=== PATIENT | female | born 1975 | race Caucasian/White ===

== ENCOUNTER 2019-11-19 13:56 | Emergency (ER) | payer OTHER, SELFPAY ==
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
[2019-11-19 14:05] VITALS: BP 159/88; PULSE 95; RESP 18; TEMP 37.2; O2SAT 98
== END 2019-11-19 14:47 | disposition home or self-care (01) ==
PROVIDERS: Emergency Provider Nurse Practitioner Family; PCP Internal Medicine
DX: G24.3 Spasmodic torticollis (principal); S13.9XXA Sprain of joints and ligaments of unspecified parts of neck, initial encounter; V49.40XA Driver injured in collision with unspecified motor vehicles in traffic accident, initial encounter; K21.9 Gastro-esophageal reflux disease without esophagitis; J45.909 Unspecified asthma, uncomplicated
CPT/HCPCS: 99213; G0463

== ENCOUNTER 2024-05-22 17:26 | Emergency (ER) | payer OTHER, SELFPAY ==
--- OUTSIDE RECORDS SUMMARY | 2024-05-22 17:30 | XMS_ITS ---
Care Plan - [facility] Created on: May 22, 2024 MIHIR ASHTON : 1975 Sex: Female Author Organization [facility] Address [address] [place] [address] Phone Care Team Providers Care Microfilm Processor Name Role Phone REN TURNER, CLEMENCIA Vaughan Unavailable [phone] DALTON ORDOÑEZ MD Unavailable [phone]
--- OUTSIDE RECORDS SUMMARY | 2024-05-22 17:30 | XMS_ITS | Clinical Summary ---
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 EXAM Problems Includes: Problems addressed during this encounter and other active Problems All Visits Onset Date Resolved Date Provider Condition S tatus Diverticulitis of Colon 06/12/2022 [facility] CHOWDHURY [facility] Active Last Documented On 3 2:29PM ; [facility] Hypertension Systemic 06/12/2022 [facility]OW[facility] Active Last Documented On 3 2:10PM ; [facility] Asthma 09/15/2015 [facility] CHOWDHURY [facility] Act elvira Last Documented On 6 1:05PM ; [facility] Plan of Treatment Pending Tests Order Diagnosis Results Due Ordering P rovider Ultrasound (OB) - ULTRASOUND Pelvic w/TVT (TransVag) Abdominal distension (gaseous) 06/15/23 [facility] Too LUCIANA [facility] Last Documented On 4 2:38PM ; [facility] Radiology @ other - *MAMMOGRAPHY SCREENING MAMMOGRAM Encntr screen mammogram for malignant neoplasm of breast 06/29/23 [facility] MCGRAWNP-BC Last Documented On 4 2:38PM ; [facility] In office procedures - *Clia Waived Labs *FOBT* Fecal Occult Blood Test Encounter for screening for malignant neoplasm of rectum 06/29/23 [facility] CHOWDHURY [facility] Last Documented On 4 2:01PM ; [facility] Assessments Includes: Assessments from this encounter No Assessments Recorded Medical Equipment - Implanted Devices Includes: Current Devices No Medical Equipment Recorded Medications Includes: Medications discussed during this encounter and other current Medications Current Medications (continue as prescribed) Ashwagandha 125 MG Oral Capsule 06/15/2023 Provider: Diagnosis: Last Documented On 06/15/2023 1:48PM By Shanti GARCIA ; [facility] Vitamin D3 25 MCG (1000 UT) Oral Tablet Chewable 0 06/15/2023 Provider: Diagnosis: Last Documented On 06/15/2023 1:48PM By Shanti GARCIA ; [facility] Losartan Potassium-HCTZ 50-1 2.5 MG Oral Tablet 05/28/2022 Provider: RODRIGUEZ SILVA NP Diagnosis: Last Documented On 06/12/2022 2:10PM By Mallory GARCIA ; [facility] Medications Administered Includes: Administered Medications from this encounter No Administered Medications Recorded Results Includes: Results discussed during this encounter No Results Recorded For Specified Dates History of Present Illness Includes: History of Present Illness from this encounter No History of Present Illness Recorded Social History No Social History Recorded - Smoking Status Unknown Medical History Includes: Medical History addressed during this encounter No Medical History Recorded Family History Includes: Family History addressed during this encounter No Family History Recorded Review of Systems Includes: Review of Systems from this encounter No Review of Systems Recorded Mental Status Includes: Mental Status from this encounter No Mental Status Recorded Functional Status Includes: Functional Status from this encounter No Functional Status Recorded Physical Exam Includes: Physical Exam from this encounter No Physical Exam Recorded Allergies Includes: Active Allergies Substance Type Reaction Onset Date Resolved Date Statu s Codeine Allergy 04/10/2009 Active Last Documented On 4 1:49PM ; [facility] Insurance Includes: Active Insurance Policies Plan Name Member ID Group # Subscriber Relationship Effect elvira Dates 1 - [facility] [id number] MIHIR ASHTON Self Clinical Notes Includes: Clinical Notes from this encounter No Clinical Notes Recorded
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
--- OUTSIDE RECORDS SUMMARY | 2024-05-22 17:30 | XMS_ITS | Clinical Summary ---
Author Organization [facility] Medical Office Building A Address [address] [place] [address] Care Team Providers Care Vice President Payment Name Role Phone Isamar Flores MD Unavailable [phone] Jennifer Mandel MD Unavailable [phone] Bradley Knutson DO Unavailable [phone] Vanessa Robledo WHEEL ASSEMBLER Primary Care Provider [phone] Lakshmi Bai Unavailable [phone] Sofia Sol NP Unavailable [phone] Allergies Active Allergy Reactions Criticality Noted Date Comments Celecoxib Other (See comments) Low 10/02/2022 Diffuse bruising Codeine Nausea & Vomiting Low Reaction: Gastrointestinal Intolerance, Lisinopril Cough Low 09/01/2020 Medications multivitamin capsule Take 1 capsule by mouth daily Active cholecalciferol (VITAMIN D-3) 5,000 unit capsule Take 1 capsule (5,000 Units total) by mouth daily Active turmeric root extract 500 mg capsule Take by mouth Active Advair Diskus 250-50 mcg/dose diskus inhalerIndications :Exercise-induced asthma,Seasonal allergic rhinitis, unspecified trigger INHALE 1 PUFF BY MOUTH TWICE DAILY. RINSE MOUTH WITH WATER AFTER USE. DO NOT SWALLOW 60 each 3 06/30/19 23 Active rizatriptan METAL WIRE COATING OPERATOR (Maxalt-METAL WIRE COATING OPERATOR) 10 mg disintegrating tabletIndications: Migraine with aura and without status migrainosus, not intractable Take 1 tablet (10 mg total) by mouth once as needed for migraine Take at onset of headache, if no improvement in 2 hours may take a second tablet, not to exceed 2 tablets in 24 hours 12 tablet 3 06/06/19 24 Active losartan-hydroCHLO ROthiazide (HYZAAR) 50-12.5 mg per tablet TAKE 1 TABLET BY MOUTH DAILY 90 tablet 3 09/05/19 24 025 Active Active Problems Problem Noted Date Diagnosed Date Neck pain 04/02/2024 Chronic right-sided low back pain with right-yan ed sciatica 04/02/2024 Numbness and tingling of right hand 04/02/2024 Pain and numbness of right upper extremity 04/02 Lightheadedness 06/06/2023 Assessment & Plan (06/08/2023 1:22 PM CDT): -improving -event monitor completed and did not show any concerning findings -patient thinks this is related to when she was having severe pain in her right knee -continue seeing ortho -follow up if this worsens Ear pain, left 03/20/2023 Assessment & Plan (03/20/2023 11:16 AM CHRONIC DISEASE MANAGER): -acute, 4 day onset -no complaints with right ear -associated symptoms left-sided sinus pressure and headache -went to urgent care for same complaints was given amoxicillin, started 1 day ago -will discontinue amoxicillin -levofloxacin prescribed to cover for ear/sinus infection Complex tear of medial meniscus of right knee Primary osteoarthritis of right knee 08/15/2022 Arthritis of right knee 03/20/2022 Assessment & Plan (05/29/2022 1:18 PM CDT): HPI: Condition is stable A&P: Continue seeing ortho for steroid injections and pain management. Radiculopathy, lumbosacral region 03/20/2022 Prediabetes 11/09/2021 Assessment & Plan (03/10/2024 7:56 AM CHRONIC DISEASE MANAGER): -chronic, stable -Discussed/ordered labs -recommend healthy carb diet with increased protein intake Assessment & Plan (06/06/2023 8:05 AM CDT): -chronic, stable -Discussed/ordered labs -recommend healthy carb diet with increased protein intake Assessment & Plan (01/08/2023 3:29 PM CHRONIC DISEASE MANAGER): -chronic, unknown, no data to review at this time to make an evaluation -Discussed/ordered labs -recommend healthy carb diet with increased protein intake -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 to public welfare worker Assessment & Plan (05/29/2022 7:21 AM CDT): HPI: Condition is stable A&P: Discussed/ordered labs, encouraged healthy, low carbohydrate lifestyle and at least 150min/week of exercise. Assessment & Plan (11/09/2021 11:46 AM CDT): HPI: Condition is new A&P: Discussed/ordered labs, encouraged healthy, low carbohydrate lifestyle and at least 150min/week of exercise, Pt just received optavia and is starting on that. We will not give medication to bring that down. She has stopped soda for the last 3 days. She switched to sweet tea. Pt needs to switch to water. Situational mixed anxiety and depressive disorde r 11/09/2021 Assessment & Plan (03/10/2024 7:57 AM CHRONIC DISEASE MANAGER): -chronic, stable -Patient is doing well and is not taking medication for this. -recommend healthy diet and exercise Patient reiterated no suicidal thoughts at this time; take medication as directed; contact 911 and go to the ER if becomes suicidal; discussed side effects of medication with patient; encouraged healthy diet and exericise; encouraged patient to see a counselor Assessment & Plan (01/08/2023 3:30 PM CHRONIC DISEASE MANAGER): Patient reiterated no suicidal thoughts at this time; take medication as directed; contact 911 and go to the ER if becomes suicidal; discussed side effects of medication with patient; encouraged healthy diet and exericise; encouraged patient to see a counselor -chronic, stable -Patient is doing well and is not taking medication for this. -recommend healthy diet and exercise Assessment & Plan (05/29/2022 1:18 PM CDT): Patient reiterated no suicidal thoughts at this time; take medication as directed; contact 911 and go to the ER if becomes suicidal; discussed side effects of medication with patient; encouraged healthy diet and exericise; encouraged patient to see a counselor HPI: Condition is stable Patient is doing well and is not taking medication for this. A&P: Discussed/ordered labs, encouraged healthy, low carbohydrate lifestyle and at least 150min/week of exercise. Assessment & Plan (11/09/2021 12:31 PM CDT): Patient reiterated no suicidal thoughts at this time; take medication as directed; contact 911 and go to the ER if becomes suicidal; discussed side effects of medication with patient; encouraged healthy diet and exericise; encouraged patient to see a counselor HPI: Condition is not at/near goal A&P: Discussed/ordered labs, encouraged healthy, low carbohydrate lifestyle and at least 150min/week of exercise, Start on escitalopram 10mg daily be consistent with timing Buspirone 10mg Twice daily while the escitalopram is kicking in. If you need a gummy at bedtime, may use it sparingly. Must see counselor. Schedule a date with your friends, do this monthly. Migraine with aura and witho ut status migrainosus, not intractable 01/11/2021 Assessment & Plan (03/10/2024 7:56 AM CHRONIC DISEASE MANAGER): -chronic, stable -Discussed/ordered labs -continue on rizatriptan 10 mg as needed for headache Discussed avoiding all caffeine: no soda, tea, coffee, chocolate; no wine; no sharp cheeses; no processed meats like hot dogs or bologna; no MSG as found in cambodian food; no more than 1/2 banana a day; no artificial sweeteners; fresh bread (less than 24 hours old) Avoid using excedrin, tylenol, ibuprofen or aleve more than twice a week or else you can cause medication overuse/rebound headaches. You may be causing the headaches with the medications you are taking to get rid of them. Be sure to push lots of water as dehydration is a big cause of headaches. Assessment & Plan (06/06/2023 8:05 AM CDT): -chronic, stable -Discussed/ordered labs -continue on rizatriptan 10 mg as needed for headache Discussed avoiding all caffeine: no soda, tea, coffee, chocolate; no wine; no sharp cheeses; no processed meats like hot dogs or bologna; no MSG as found in cambodian food; no more than 1/2 banana a day; no artificial sweeteners; fresh bread (less than 24 hours old) Avoid using excedrin, tylenol, ibuprofen or aleve more than twice a week or else you can cause medication overuse/rebound headaches. You may be causing the headaches with the medications you are taking to get rid of them. Be sure to push lots of water as dehydration is a big cause of headaches. Assessment & Plan (03/20/2023 11:15 AM CHRONIC DISEASE MANAGER): -chronic, stable -currently taking rizatriptan -reporting left-sided headache in office today, likely due to sinus/ear infection -patient encouraged to take migraine medication as needed -continue current therapy Assessment & Plan (01/08/2023 3:29 PM CHRONIC DISEASE MANAGER): -chronic, stable -Discussed/ordered labs -continue on rizatriptan 10 mg as needed for headache Discussed avoiding all caffeine: no soda, tea, coffee, chocolate; no wine; no sharp cheeses; no processed meats like hot dogs or bologna; no MSG as found in cambodian food; no more than 1/2 banana a day; no artificial sweeteners; fresh bread (less than 24 hours old) Avoid using excedrin, tylenol, ibuprofen or aleve more than twice a week or else you can cause medication overuse/rebound headaches. You may be causing the headaches with the medications you are taking to get rid of them. Be sure to push lots of water as dehydration is a big cause of headaches. Assessment & Plan (05/29/2022 7:21 AM CDT): HPI: Condition is stable A&P: Discussed/ordered labs, encouraged healthy, low carbohydrate lifestyle and at least 150min/week of exercise, continue on rizatriptan 10 mg as needed for headache. Discussed avoiding all caffeine: no soda, tea, coffee, chocolate; no wine; no sharp cheeses; no processed meats like hot dogs or bologna; no MSG as found in cambodian food; no more than 1/2 banana a day; no artificial sweeteners; fresh bread (less than 24 hours old) Avoid using excedrin, tylenol, ibuprofen or aleve more than twice a week or else you can cause medication overuse/rebound headaches. You may be causing the headaches with the medications you are taking to get rid of them. Be sure to push lots of water as dehydration is a big cause of headaches. Assessment & Plan (09/19/2021 6:34 AM CDT): HPI: Condition is stable A&P: Discussed/ordered labs, encouraged healthy, low carbohydrate lifestyle and at least 150min/week of exercise, Discussed avoiding all caffeine: no soda, tea, coffee, chocolate; no wine; no sharp cheeses; no processed meats like hot dogs or bologna; no MSG as found in cambodian food; no more than 1/2 banana a day; no artificial sweeteners; fresh bread (less than 24 hours old) Avoid using excedrin, tylenol, ibuprofen or aleve more than twice a week or else you can cause medication overuse/rebound headaches. You may be causing the headaches with the medications you are taking to get rid of them. Be sure to push lots of water as dehydration is a big cause of headaches. Continue using rizatriptan 10mg as needed Assessment & Plan (01/11/2021 12:53 PM CHRONIC DISEASE MANAGER): Toradol 60mg given in office-monitored x 30 min; pain 6/10 Ibuprofen 800mg as needed; discussed proper use of a triptan-taking within 30min of onset of headache, may repeat in 2 hours if headache not improved, not to exceed 2 in 24 hours; discussed keeping headache diary Discussed avoiding all caffeine: no soda, tea, coffee, chocolate; no wine; no sharp cheeses; no processed meats like hot dogs or bologna; no MSG as found in cambodian food; no more than 1/2 banana a day; no artificial sweeteners; fresh bread (less than 24 hours old) Avoid using tylenol, ibuprofen or aleve more than twice a week or else you can cause medication overuse/rebound headaches. You may be causing the headaches with the medications you are taking to get rid of them. Be sure to push lots of water as dehydration is a big cause of headaches. Hypertension, essential 06/29/2020 Assessment & Plan (03/10/2024 7:56 AM CHRONIC DISEASE MANAGER): -chronic, stable -Discussed/ordered labs -continue on losartan-hydrochlorothiazide 50-12.5 mg daily -recommend healthy, low salt diet Assessment & Plan (06/06/2023 8:05 AM CDT): -chronic, stable -Discussed/ordered labs -continue on losartan-hydrochlorothiazide 50-12.5 mg daily -recommend healthy, low salt diet Assessment & Plan (01/08/2023 2:46 PM CHRONIC DISEASE MANAGER): -chronic, stable -Discussed/ordered labs -continue on losartan-hydrochlorothiazide 50-12.5 mg daily -recommend healthy, low salt diet Assessment & Plan (05/29/2022 7:22 AM CDT): HPI: Condition is stable A&P: Discussed/ordered labs, encouraged healthy, low carbohydrate lifestyle and at least 150min/week of exercise, continue on losartan-hydrochlorothiazide 50-12.5 mg daily Assessment & Plan (11/09/2021 12:14 PM CDT): HPI: Condition is stable A&P: Discussed/ordered labs, encouraged healthy, low carbohydrate lifestyle and at least 150min/week of exercise, continue on losartan/hydrochlorothiazide 50/12.5 mg daily Assessment & Plan (09/19/2021 6:36 AM CDT): HPI: Condition is stable A&P: Discussed/ordered labs, encouraged healthy, low carbohydrate lifestyle and at least 150min/week of exercise, continue on losartan/hydrochlorothiazide 50/12.5 mg daily Assessment & Plan (08/04/2020 8:55 AM CDT): HPI: Condition is improving A&P: Discussed/ordered labs, encouraged healthy, low carbohydrate lifestyle and at least 150min/week of exercise, decrease lisinopril/HCTZ 10/12.5 mg 1/2 tablet daily (she doesn't want to come off of the HCTZ as she is having less swelling) With your high blood pressure, you may not take anything with the letter D or DM, dextromethoraphan or sudafed. This includes meds such as nyquil, dayquil, Claritin D, Mucinex D, Robitussin DM. You may take coricidin HBP which is safe for those that have high blood pressure. You may also take plain clairitin, zyrtec, vickie, Robitussin or Mucinex. Assessment & Plan (06/29/2020 10:32 AM CDT): HPI: Condition is new A&P: Discussed/ordered labs, encouraged healthy, low carbohydrate lifestyle and at least 150min/week of exercise, clonidine 0.2mg given in office at 1010am. EKG done in office today my interpretation: Normal sinus rhythm rate 73 No axis deviation No bundle-branch block No acute ST changes No comparison available With your high blood pressure, you may not take anything with the letter D or DM, dextromethoraphan or sudafed We will start on lisinopril/hctz 20/12.5mg daily Family history of early CAD 06/29/2020 Overview (06/29/2020): Paternal family history with father, aunt, grandfather Maternal history of TIAs and ALS Assessment & Plan (05/29/2022 1:20 PM CDT): -Patient's insurance would not cover chemical stress test. -Cardiology ordered a treadmill stress test, but patient states she was not made aware of this. -Advised patient to call and schedule treadmill stress test. -Follow up with Cardiology. Assessment & Plan (11/09/2021 12:10 PM CDT): EKG done in office today NSR rate 85 no axis deviation no bbb no acute st changes We will refer to cardiology for stress test Assessment & Plan (06/29/2020 10:32 AM CDT): Labs ordered today Class 2 severe obesity with serious comorbidity and body mass index (BMI) of 36.0 to 36.9 in adult 06/29/2020 Assessment & Plan (03/10/2024 2:59 PM CHRONIC DISEASE MANAGER): -chronic not at/near goal goal BMI <30 Healthy, high-protein, lower carbohydrate, lower fat lifestyle and exercise for 150min/week recommended Recommend tracking everything you put in your mouth on an karmen like Donay -patient's insurance does not cover weight loss injectables -start on phentermine 15 mg daily. Potential side effects discussed with pt. Advised pt that we typically keep pts on this medication for 3 months at a time -Follow up in 1 month or sooner as needed Hand Measurements: A fist or cupped hand = 1 cup 1 cup = 1 -2 servings of fruit juice 1 oz. of cold cereal 2 oz. of cooked cereal, rice or pasta 8 oz. of milk or yogurt A thumb = 1 oz. of cheese Consuming low-fat cheese helps you meet the required servings from the milk, yogurt and cheese group. 1 oz. of low-fat cheese counts as 8 oz. of milk or yogurt. Handful = 1-2 oz. of snack food Thumb tip = 1 teaspoon Keep high-fat foods, such as peanut butter and mayonnaise, at a minimum. One teaspoon is equal to the end of your thumb, from the knuckle up. Three teaspoons equals 1 tablespoon. Palm = 3 oz. of meat Choose lean poultry, fish, shellfish and beef. One palm size portion equals 3 oz. for an adult and 1 -2 oz. for a child under 5. 1 tennis ball or a fist= 1/2 cup of fruit and vegetables Healthy diets include a variety of colorful fruits and vegetables every day. The secret to serving size is in your hand. Snacking can add up. Because hand sizes vary, compare your fist size to an actual measuring cup. Assessment & Plan (06/08/2023 1:22 PM CDT): -chronic not at/near goal goal BMI <30 Healthy, high-protein, lower carbohydrate, lower fat lifestyle and exercise for 150min/week recommended Recommend tracking everything you put in your mouth on an karmen like Donay -patient's insurance does not cover weight loss medications. Hand Measurements: A fist or cupped hand = 1 cup 1 cup = 1 -2 servings of fruit juice 1 oz. of cold cereal 2 oz. of cooked cereal, rice or pasta 8 oz. of milk or yogurt A thumb = 1 oz. of cheese Consuming low-fat cheese helps you meet the required servings from the milk, yogurt and cheese group. 1 oz. of low-fat cheese counts as 8 oz. of milk or yogurt. Handful = 1-2 oz. of snack food Thumb tip = 1 teaspoon Keep high-fat foods, such as peanut butter and mayonnaise, at a minimum. One teaspoon is equal to the end of your thumb, from the knuckle up. Three teaspoons equals 1 tablespoon. Palm = 3 oz. of meat Choose lean poultry, fish, shellfish and beef. One palm size portion equals 3 oz. for an adult and 1 -2 oz. for a child under 5. 1 tennis ball or a fist= 1/2 cup of fruit and vegetables Healthy diets include a variety of colorful fruits and vegetables every day. The secret to serving size is in your hand. Snacking can add up. Because hand sizes vary, compare your fist size to an actual measuring cup. Assessment & Plan (03/20/2023 9:06 AM CHRONIC DISEASE MANAGER): Wt Readings from Last 3 Encounters: 03/20/23 92.5 kg (204 lb) 03/19/23 94.3 kg (208 lb) 02/19/23 94.3 kg (208 lb) Body mass index is 35.02 kg/m . -chronic, not at/near goal -Discussed recommendations for exercise at least 30 minutes moderate to vigorous exercise most days of the week. (minimum 150 minutes weekly) -Discussed importance of well-balanced diet. Assessment & Plan (01/08/2023 2:43 PM CHRONIC DISEASE MANAGER): HPI: Condition is not at/near goal goal BMI <30 A&P: Healthy, high-protein, lower carbohydrate, lower fat lifestyle and exercise for 150min/week recommended Recommend tracking everything you put in your mouth on an karmen like Donay Hand Measurements: A fist or cupped hand = 1 cup 1 cup = 1 -2 servings of fruit juice 1 oz. of cold cereal 2 oz. of cooked cereal, rice or pasta 8 oz. of milk or yogurt A thumb = 1 oz. of cheese Consuming low-fat cheese helps you meet the required servings from the milk, yogurt and cheese group. 1 oz. of low-fat cheese counts as 8 oz. of milk or yogurt. Handful = 1-2 oz. of snack food Thumb tip = 1 teaspoon Keep high-fat foods, such as peanut butter and mayonnaise, at a minimum. One teaspoon is equal to the end of your thumb, from the knuckle up. Three teaspoons equals 1 tablespoon. Palm = 3 oz. of meat Choose lean poultry, fish, shellfish and beef. One palm size portion equals 3 oz. for an adult and 1 -2 oz. for a child under 5. 1 tennis ball or a fist= 1/2 cup of fruit and vegetables Healthy diets include a variety of colorful fruits and vegetables every day. The secret to serving size is in your hand. Snacking can add up. Because hand sizes vary, compare your fist size to an actual measuring cup. Assessment & Plan (05/29/2022 1:19 PM CDT): HPI: Condition is not at/near goal goal BMI <30 A&P: Healthy, high-protein, lower carbohydrate, lower fat lifestyle and exercise for 150min/week recommended. Advised patient she needs to stop drinking soda and needs to drink at least 64 oz of plain water daily. Recommend tracking everything you put in your mouth on an karmen like [employer] Hand Measurements: A fist or cupped hand = 1 cup 1 cup = 1 -2 servings of fruit juice 1 oz. of cold cereal 2 oz. of cooked cereal, rice or pasta 8 oz. of milk or yogurt A thumb = 1 oz. of cheese Consuming low-fat cheese helps you meet the required servings from the milk, yogurt and cheese group. 1 oz. of low-fat cheese counts as 8 oz. of milk or yogurt. Handful = 1-2 oz. of snack food Thumb tip = 1 teaspoon Keep high-fat foods, such as peanut butter and mayonnaise, at a minimum. One teaspoon is equal to the end of your thumb, from the knuckle up. Three teaspoons equals 1 tablespoon. Palm = 3 oz. of meat Choose lean poultry, fish, shellfish and beef. One palm size portion equals 3 oz. for an adult and 1 -2 oz. for a child under 5. 1 tennis ball or a fist= 1/2 cup of fruit and vegetables Healthy diets include a variety of colorful fruits and vegetables every day. The secret to serving size is in your hand. Snacking can add up. Because hand sizes vary, compare your fist size to an actual measuring cup. Assessment & Plan (11/09/2021 12:33 PM CDT): HPI: Condition is stable goal BMI <30 A&P: Healthy, high-protein, lower carbohydrate, lower fat lifestyle and exercise for 150min/week recommended Recommend tracking everything you put in your mouth on an karmen like Donay Lower carb substitutions: Ald[employer] carries a zero net carb bread If you are looking for whole potatoes, like to use in soup or new potato shape/flavor, radishes are a great replacement If you are looking for mashed potatoes, riced cauliflower in the frozen bag section are a great replacement For pasta, try using zucchini noodles, lay them out on a cookie sheet and pat dry with a tea towel to try to remove as much moisture as possible. Heat your pasta sauce on the stove and put the noodles in for 30-45 seconds. If you leave them in much longer they will become mushy [place] and/or coconut flour instead of regular flour For pizza dough, try fathead pizza dough recipe online. To get a crispy crust, bake on one side for 8-12 min, then flip over and bake on the other side for 8-12 min, then put toppings on and bake until the cheese on top of pizza melts chaffburak recipe online For ice cream, try the brand Enlightened To replace coffee creamer and make it low carb, use heavy creamer with sugar free Torani sweetener For chips, try Whisps or pork rinds For yogurt, try Two Good maltese yogurt Use Pinterest for recipe ideas. Type in low carb... Hand Measurements: A fist or cupped hand = 1 cup 1 cup = 1 -2 servings of fruit juice 1 oz. of cold cereal 2 oz. of cooked cereal, rice or pasta 8 oz. of milk or yogurt A thumb = 1 oz. of cheese Consuming low-fat cheese helps you meet the required servings from the milk, yogurt and cheese group. 1 oz. of low-fat cheese counts as 8 oz. of milk or yogurt. Handful = 1-2 oz. of snack food Thumb tip = 1 teaspoon Keep high-fat foods, such as peanut butter and mayonnaise, at a minimum. One teaspoon is equal to the end of your thumb, from the knuckle up. Three teaspoons equals 1 tablespoon. Palm = 3 oz. of meat Choose lean poultry, fish, shellfish and beef. One palm size portion equals 3 oz. for an adult and 1 -2 oz. for a child under 5. 1 tennis ball or a fist= 1/2 cup of fruit and vegetables Healthy diets include a variety of colorful fruits and vegetables every day. The secret to serving size is in your hand. Snacking can add up. Remember, 1 handful equals 1 oz. of nuts and small candies. For chips and pretzels, 2 handfuls equals 1 oz. Because hand sizes vary, compare your fist size to an actual measuring cup. Assessment & Plan (09/19/2021 6:36 AM CDT): HPI: Condition is stable goal BMI <30 A&P: Healthy, high-protein, lower carbohydrate, lower fat lifestyle and exercise for 150min/week recommended Recommend tracking everything you put in your mouth on an karmen like Donay Lower carb substitutions: Aldi carries a zero net carb bread If you are looking for whole potatoes, like to use in soup or new potato shape/flavor, radishes are a great replacement If you are looking for mashed potatoes, riced cauliflower in the frozen bag section are a great replacement For pasta, try using zucchini noodles, lay them out on a cookie sheet and pat dry with a tea towel to try to remove as much moisture as possible. Heat your pasta sauce on the stove and put the noodles in for 30-45 seconds. If you leave them in much longer they will become mushy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 Answer Date Recorded Q1: How often do you have a drink containing alc ohol? Monthly or less 03/10/2024 Q2: How many drinks containi ng alcohol do you have on a typical day when you are drinking? 1 or 2 03/10/2024 Q3: How often do you have si x or more drinks on one occasion? Never 03/10/2024 PHQ-2 Answer Date Recorded PHQ-2 Total Score (If total score is 3 or more points, staff should administer the PHQ-9) 0 03/10/2024 Personal Safety Answer Date Recorded Have you ever been in or are you currently in a harmful physical or emotional relationship or is someone making you feel afraid or unsafe? 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 Gender Identity Not on file Sexual Orientation Not on file Obstetrics History Para Term AB IAB SAB Ectopic Multiple Livin g Live Births 1 1 1 Date Outcome GA Total Labor Labor/2nd/3rd Weight Sex Type Anes PTL Kayley A1 A5 Name Clin Term Last Filed Vital Signs Vital Sign Reading Time Taken Comments Blood Pressure 108/70 04/02/2024 1:18 PM CHRONIC DISEASE MANAGER Pulse 99 04/02/2024 1:18 PM CHRONIC DISEASE MANAGER Temperature 36.4 C (97.5 F) 03/10/2024 11:12 AM CHRONIC DISEASE MANAGER Respiratory Rate 20 03/10/2024 11:12 AM CHRONIC DISEASE MANAGER Oxygen Saturation 95% 04/02/2024 1:18 PM CHRONIC DISEASE MANAGER Inhaled Oxygen Concentration - - Weight 93.4 kg (206 lb) 04/02/2024 1:18 PM CHRONIC DISEASE MANAGER Height 157.5 cm (5' 2 ) 04/02/2024 1:18 PM CHRONIC DISEASE MANAGER Body Mass Index 37.68 04/02/2024 1:18 PM CHRONIC DISEASE MANAGER Plan of Treatment Health Maintenance Due Date Last Done Comments Colon Cancer Screening-Colonoscopy 1975 Hepatitis C Screening 1975 Hepatitis B Screening 08/17/1993 Cervical Cancer Screening 05/30/2016 05/31/2015 Covid-19 Vaccine ( - 2023-2 5 season) 2023 05/11/2020, 04/16/2020 Regular Well Visit/Exam 18-64 06/05/2024 06/06/2023 Breast Cancer Screening-Mammogram 08/07/2024 08/08/2023, 05/25/2021, 10/04/2015 Influenza Vaccine (Season Ended) 2024 01/12/20 21 Depression Screening 03/10/2025 03/10/2024, 06/06/2023, 03/20/2023, Additional history exists DTaP/Tdap/Td Vaccine (3 - Td or Tdap) 09/20/2031 09/19/2021, 04/27/2011, 09/14/2001 Pneumococcal vaccine <65 Completed 09/19/2021 Procedures Procedure Name Priority Date/Time Associated Diagnosis Comments EMG/NCV Routine 05/21/2024 12:47 PM CDT Pain and numbness of right upper extremity THYROID FUNCTION CASCADE Routine 02/26/2024 8:57 AM CHRONIC DISEASE MANAGER Family history of thyroid disease HEMOGLOBIN A1C Routine 02/26/2024 8:57 AM CHRONIC DISEASE MANAGER Pre-diabetes SCREENING MAMMOGRAM BILATERAL W JUAN Schedule Routine, Read Routine (OP Routine) 08/08/2023 1:09 PM CDT Encounter for screening mammogram for malignant neoplasm of breast PAP AND HIGH RISK HPV, REFLEX TO GENOTYPING Routine 05/31/2015 from Last 3 Months or Most Recently Relevant to Health Maintenance Results * EMG/NCV - (05/21/2024 12:47 PM CDT) Anatomical Region Laterality Modality EMG, EMG Impressions 05/21/2024 12:47 PM CDT History: This is a 48 years old female patient being evaluated for tingling and numbness, as well as pain on right side of her body. Nerve conduction studies: Right median and right ulnar motor nerve conduction studies showed normal DMLs, normal CMAP amplitudes, normal motor nerve conduction velocities and normal F wave latencies. Right radial antidromic sensory nerve conduction study showed normal SNAP peak latency, low amplitude and normal sensory nerve conduction velocity. Right median orthodromic sensory nerve conduction study showed normal SNAP peak latency, normal amplitude and normal sensory nerve conduction velocity. Right ulnar orthodromic sensory nerve conduction study showed normal SNAP peak latency, borderline low amplitude and normal sensory nerve conduction velocity. Right median and right radial SNAP peak latency comparison study using ring electrodes showed SNAP peak latency ms for right radial nerve and ms for right median nerve. EMG studies: The concentric needle electrode examination was performed on right FDI, APB, flexor carpi radialis, biceps and deltoid. There was no evidence of acute or chronic denervation or reinnervation. The interference pattern is full in all muscle tested. Impression: This is an abnormal study. There was electrophysiologic evidence suggestive of: 1. 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 2. Low amplitude of right radial sensory nerve. The finding may be secondary to technical difficulty. The needle EMG study of right upper extremity did not show any ongoing denervation. Torres Foster MD NEUROLOGY ORDERABLES Fi nal Result * Thyroid Function [place] (02/26/2024 8:57 AM CHRONIC DISEASE MANAGER) TSH 1.37 0.30 - 4.20 mcIUnit/mL Blood 02/26/2024 8:5 7 AM CHRONIC DISEASE MANAGER 02/26/2024 2:42 PM CHRONIC DISEASE MANAGER Sanjay Suarez DO LAB BLOOD ORDERABLES Final Result Performing Organization Address [facility] Co de Phone Number RAQUELAME [address] [address] [address] * Hemoglobin A1c (02/26/2024 8:57 AM CHRONIC DISEASE MANAGER) Hgb A1C 5.5 4.0 - 5.6 % Estimated Average Glucose 111 mg/dL MARIANO BROWN Comment: The ADA recommends reporting an estimated Average Glucose (eAG) with all Hemoglobin A1c results using the equation derived from a study of 507 normal and diabetic adults. Minority populations were underrepresented and children were not included. (Diabetes Care 31:5005-1899, 2008). The eAG is not equivalent to a fasting glucose. Blood 02/26/2024 8:57 AM CHRONIC DISEASE MANAGER 02/26/2024 2:42 PM CHRONIC DISEASE MANAGER Carolinebárbara Júnior Suarez DO LAB BLOOD ORDERABLES Final Result Performing Organization Address [facility] Co de Phone Number MARIANO BROWN [address] [address] [address] * Screening Mammogram Bilateral W Juan (08/08/2023 1:09 PM CDT) Anatomical Region Laterality Modality Breast Bilateral Mammography 08/08/2023 1:12 PM CDT Impressions 08/08/2023 1:12 PM CDT There is no mammographic evidence of malignancy. A 1 year screening mammogram is recommended. BI-RADS: 1 - Negative. The patient has been or will be contacted. The patient will be entered into a reminder system with a target due date of 1 year for her next mammogram. Electronically signed by: Kevin Tierney M.D. Narrative 08/08/2023 1:12 PM CDT EXAMINATION: SCREENING MAMMOGRAM BILATERAL W JUAN ORDERING HEALTHCARE PROVIDER: CLEMENCIA HUNT HISTORY: Routine screening mammography. COMPARISON: 05/25/2021, 10/15/2015, 10/04/2015 TECHNIQUE: CC and MLO views of the bilateral breasts were obtained with digital technique using breast tomosynthesis with C view. Computer aided detection was utilized. FINDINGS: DENSITY: The tissue of the bilateral breasts is heterogeneously dense, which may obscure small masses. BREASTS: There are no suspicious masses, suspicious calcifications, or other suspicious findings in either breast. There has been no suspicious interval change. Clemencia Hunt MD IMG MAMMO PROCEDURES Final Re sult * Pap and High Risk HPV, reflex to Genotyping (05/31/2015) Thin prep 05/31/2015 Historical Provider LAB CYTOLOGY ORDERABLES F inal Result from Last 3 Months or Most Recently Relevant to Health Maintenance Insurance [facility] H[facility]/PPO Address: [facility] [id number] [place] [id number] [place] [id number] [facility] H[facility]/PPO Address: [address] [address] [facility] [place] [address] Advance Directives For more information, please contact: [phone] * Full Code (Latest Code Status on File) Date Activated Date Inactivated Comments 09/30/2019 1:03 PM 10/02/2019 4:35 PM Care Teams Vice President Payment Relationship Specialty Start Date End Date Vanessa Robledo NP 2 [facility] [place] [address] PCP - General Family Medicine 05/29/22 Isamar Flores MD [address] [place] [address] Referring Physician Dermatology 06/29/20 Jennifer Mandel MD [address] [place] [address] Consulting Physician Gastroenterology 06/29/20 Bradley Knutson DO 2 [facility] [place] [address] Referring Physician Otolaryngology 06/29/20 Lakshmi Bai PA [address] [place] [id number] Orthopedic Surgery 10/02/22 Sofia Sol NP [address] [place] [id number] Nurse Practitioner Obstetrics and Gynecology 06/06/23
--- OUTSIDE RECORDS SUMMARY | 2024-05-22 17:30 | XMS_ITS | Encounter Summary ---
Author Organization [facility] Address [address] [place] [address] Care Team Providers Care Slip Cover Cutter Name Role Phone Iasmar Flores MD Unavailable [phone] Jennifer Mandel MD Unavailable [phone] Bradley Knutson DO Unavailable [phone] Vanessa Robledo NP Primary Care Provider + [phone] Lakshmi Bai Unavailable [phone] Sofia Sol NP Unavailable [phone] Reason for Referral * Neurology (Routine) - Closed Specialty Diagnoses / Procedures Referred By Jonathan alexander Referred To Contact Diagnoses Pain and numbness of right upper extremity Procedures EMG/NCV - Torres Foster MD [address] [place] [address] [address] [place] [address] Phone: tel: fax: [address] [phone] Referral ID Status Reason Start Date Expiration Date Visits Re quested Visits Authorized [id number] Closed 04/02/2024 05/02/2025 1 1 Reason for Visit * Neurology (Routine) - Closed Specialty Diagnoses / Procedures Referred By Jonathan alexander Referred To Contact Diagnoses Pain and numbness of right upper extremity Procedures EMG/NCV - Torres Foster MD [address] [facility] [address] [place] [address] Phone: tel: fax: [address] [phone] Referral ID Status Reason Start Date Expiration Date Visits Re quested Visits Authorized [id number] Closed 04/02/2024 05/02/2025 1 1 Encounter Details Date Type Department Care Team (Latest Contact Info) Description 05/21/2024 11:42 AM CDT - 05/21/2024 11:59 PM CDT Hospital Encounter [facility] Neurological Disorders Testing [address] [place] [address] Pain and numbness of right upper extremity Discharge Disposition: Discharge to home or self care Social History Tobacco Use Types Packs/Day Years Used Date Smoking Tobacco: Never Smokeless Tobacco: Never Alcohol Use Standard Drinks/Week Comments No 0 [...] on file 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 RINSE MOUTH WITH WATER AFTER USE. DO NOT SWALLOW 60 each 3 06/29/2022 cholecalciferol (VITAMIN D-3) 5,000 unit capsule Take 1 capsule (5,000 Units total) by mouth daily losartan-hydroCHLOR Othiazide (HYZAAR) 50-12.5 mg per tablet TAKE 1 TABLET BY MOUTH DAILY 90 tablet 3 09/05/2023 09/05/19 25 multivitamin capsule Take 1 capsule by mouth daily rizatriptan ROLL TENDER (Maxalt-ROLL TENDER) 10 mg disintegrating tabletIndications:M igraine with aura and without status migrainosus, not intractable Take 1 tablet (10 mg total) by mouth once as needed for migraine Take at onset of headache, if no improvement in 2 hours may take a second tablet, not to exceed 2 tablets in 24 hours 12 tablet 3 06/06/2023 turmeric root extract 500 mg capsule Take by mouth documented as of this encounter Discharge Disposition Disposition Code Departure Means Destination Discharge to home or self care documented in this encounter Plan of Treatment Not on file documented as of this encounter Procedures Procedure Name Priority Date/Time Associated Diagnosis Comments EMG/NCV Routine 05/21/2024 12:47 PM CDT Pain and numbness of right upper extremity documented in this encounter Results * EMG/NCV - (05/21/2024 12:47 PM [...] extremity did not show any ongoing denervation. us Torres Foster MD NEUROLOGY ORDERABLES Fi nal Result documented in this encounter Visit Diagnoses Diagnosis Pain and numbness of right upper extremity documented in this encounter Care Teams Slip Cover Cutter Relationship Specialty Start Date End Date Vanessa Robledo NP [address] [facility] [address] [place] [address] PCP - General Family Medicine 05/29/22 Isamar Flores MD [address] [place] [address] Referring Physician Dermatology 06/29/20 Jennifer Mandel MD [address] [place] [address] Consulting Physician Gastroenterology 06/29/20 Bradley Knutson DO 2 [facility] [address] [place] [address] Referring Physician Otolaryngology 06/29/20 Lakshmi Bai PA [address] [place] [address] [address] [place] [address] Orthopedic Surgery 10/02/22 Sofia Sol NP [address] [place] [address] Nurse Practitioner Obstetrics and Gynecology 06/06/23 documented as of this encounter
--- OUTSIDE RECORDS SUMMARY | 2024-05-22 17:30 | XMS_ITS | Referral Summary ---
Author Organization [facility] A Address [address] [place] [address] Care Team Providers Care Seaport Planning Manager Name Role Phone Isamar Flores MD Unavailable [phone] Jennifer Mandel MD Unavailable [phone] Bradley Knutson DO Unavailable [phone] Vanessa Robledo SHEAR OPERATOR AUTOMATIC Primary Care Provider [phone] Lakshmi Bai Unavailable [phone] Sofia Sol NP Unavailable [phone] Encounters Date Type Department Care Team Description 05/22/2024 Documentation [facility] [address] [facility] [address] [place] [phone] Torres Foster MD 05/21/2024 11:42 AM CDT - 05/21/2024 11:59 PM CDT Hospital Encounter [facility] Neurological Disorders Testing [address] [place] [address] Pain and numbness of right upper extremity Discharge Disposition: Discharge to home or self care 04/29/2024 Telephone [facility] [address] [place] [address] [address] [place] [address] Kimberly Archibald 04/02/2024 1:30 PM ENROBER Office Visit [facility] [address] [facility] [address] [place] [address] Torres Foster MD Neck pain (Primary Dx); Lower extremity numbness; Pain and numbness of right upper extremity; Chronic right-sided low back pain with right-sided sciatica 03/12/2024 Orders Only [facility] at [address] [place] [address] Vanessa Robledo NP Screening for colon cancer (Primary Dx) 03/10/2024 Telephone [facility] at [address] [place] [address] Vanessa Robledo NP 03/10/2024 11:30 AM ENROBER Office Visit [facility] at [address] [place] [address] Vanessa Robledo NP Hypertension, essential (Primary Dx); [...] 36.9 in adult, unspecified obesity type (HCC) 02/26/2024 8:57 AM ENROBER - 02/26/2024 11:59 PM [place]OBER [place] [address] Pre-diabetes; Family history of thyroid disease Discharge Disposition: Discharge to home or self care 02/26/2024 9:00 AM ENROBER Lab [facility] at [address] [place] [address] Diabetes mellitus, latent (Primary Dx); Family history of endocrine and metabolic disease 02/26/2024 8:30 AM ENROBER Office Visit [facility] at [address] [place] [phone] Sanjay Suarez, Weight gain (Primary Dx); Family history of thyroid disease; Pre-diabetes; Class 2 obesity without serious comorbidity with body mass index (BMI) of 36.0 to 36.9 in adult, unspecified obesity type from Last 3 Months Allergies Active Allergy Reactions Criticality Noted Date [...] 60 each 3 06/30/19 23 Active rizatriptan HOSIERY PAIRER (Maxalt-HOSIERY PAIRER) 10 mg disintegrating tabletIndications: Migraine with aura [...] 03/20/2023 Assessment & Plan (03/20/2023 11:16 AM ENROBER): -acute, 4 day onset -no complaints with [...] 11/09/2021 Assessment & Plan (03/10/2024 7:56 AM ENROBER): -chronic, stable -Discussed/ordered labs -recommend healthy carb diet with increased protein intake Assessment & Plan (06/06/2023 8:05 AM CDT): -chronic, stable -Discussed/ordered labs -recommend healthy carb diet with increased protein intake Assessment & Plan (01/08/2023 3:29 PM ENROBER): -chronic, unknown, no data to review at this time to make an evaluation -Discussed/ordered labs -recommend healthy carb diet with increased protein intake -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 to plating technician Assessment & Plan (05/29/2022 7:21 AM CDT): [...] 11/09/2021 Assessment & Plan (03/10/2024 7:57 AM ENROBER): -chronic, stable -Patient is doing well and [...] counselor Assessment & Plan (01/08/2023 3:30 PM ENROBER): Patient reiterated no suicidal thoughts at this [...] 01/11/2021 Assessment & Plan (03/10/2024 7:56 AM ENROBER): -chronic, stable -Discussed/ordered labs -continue on rizatriptan 10 mg as needed for headache Discussed avoiding all caffeine: no soda, tea, coffee, chocolate; no wine; no sharp cheeses; no processed meats like hot dogs or bologna; no MSG as found in ghanaian food; no more than 1/2 banana a [...] or bologna; no MSG as found in ghanaian food; no more than 1/2 banana a [...] headaches. Assessment & Plan (03/20/2023 11:15 AM ENROBER): -chronic, stable -currently taking rizatriptan -reporting left-sided headache in office today, likely due to sinus/ear infection -patient encouraged to take migraine medication as needed -continue current therapy Assessment & Plan (01/08/2023 3:29 PM ENROBER): -chronic, stable -Discussed/ordered labs -continue on rizatriptan 10 mg as needed for headache Discussed avoiding all caffeine: no soda, tea, coffee, chocolate; no wine; no sharp cheeses; no processed meats like hot dogs or bologna; no MSG as found in ghanaian food; no more than 1/2 banana a [...] or bologna; no MSG as found in ghanaian food; no more than 1/2 banana a [...] or bologna; no MSG as found in ghanaian food; no more than 1/2 banana a [...] needed Assessment & Plan (01/11/2021 12:53 PM ENROBER): Toradol 60mg given in office-monitored x 30 [...] or bologna; no MSG as found in ghanaian food; no more than 1/2 banana a [...] 06/29/2020 Assessment & Plan (03/10/2024 7:56 AM ENROBER): -chronic, stable -Discussed/ordered labs -continue on losartan-hydrochlorothiazide 50-12.5 mg daily -recommend healthy, low salt diet Assessment & Plan (06/06/2023 8:05 AM CDT): -chronic, stable -Discussed/ordered labs -continue on losartan-hydrochlorothiazide 50-12.5 mg daily -recommend healthy, low salt diet Assessment & Plan (01/08/2023 2:46 PM ENROBER): -chronic, stable -Discussed/ordered labs -continue on losartan-hydrochlorothiazide [...] 06/29/2020 Assessment & Plan (03/10/2024 2:59 PM ENROBER): -chronic not at/near goal goal BMI <30 Healthy, high-protein, lower carbohydrate, lower fat lifestyle and exercise for 150min/week recommended Recommend tracking everything you put in your mouth on an karmen like Meusonic -patient's insurance does not cover weight loss [...] in your mouth on an karmen like Meusonic -patient's insurance does not cover weight loss [...] cup. Assessment & Plan (03/20/2023 9:06 AM ENROBER): Wt Readings from Last 3 Encounters: 03/20/23 [...] diet. Assessment & Plan (01/08/2023 2:43 PM ENROBER): HPI: Condition is not at/near goal goal BMI <30 A&P: Healthy, high-protein, lower carbohydrate, lower fat lifestyle and exercise for 150min/week recommended Recommend tracking everything you put in your mouth on an karmen like Meusonic Hand Measurements: A fist or cupped hand [...] in your mouth on an karmen like Meusonic Hand Measurements: A fist or cupped hand [...] in your mouth on an karmen like Meusonic Lower carb substitutions: Victor M carries a zero net carb bread If [...] in much longer they will become mushy [place] and/or coconut flour instead of regular flour [...] pork rinds For yogurt, try Two Good new zealander yogurt Use Kia for recipe ideas. Type [...] in your mouth on an karmen like Meusonic Lower carb substitutions: Aldi carries a zero [...] in much longer they will become mushy [place] and/or coconut flour instead of regular flour [...] pork rinds For yogurt, try Two Good new zealander yogurt Use Pinmedhat for recipe ideas. Type [...] cup. Assessment & Plan (01/11/2021 12:28 PM ENROBER): HPI: Condition is not at/near goal goal BMI <30 A&P: Healthy, high-protein, lower carbohydrate, lower fat lifestyle and exercise for 150min/week recommended Substitutions: Recommend tracking everything you put in your mouth on an karmen like Meusonic or NephroGenex Aldi carries a zero net carb bread [...] in much longer they will become mushy [place] and/or coconut flour instead of regular flour [...] pork rinds For yogurt, try Two Good new zealander yogurt Use Pinterest for recipe ideas. Type in low carb... Assessment & Plan (08/04/2020 9:26 AM CDT): HPI: Condition is not at/near goal goal BMI <30 A&P: Healthy, high-protein, lower carbohydrate, lower fat lifestyle and exercise for 150min/week recommended for weight, we will have pt see her DIRECTOR OF SPORTS MEDICINE for hormone checks next week. We can then talk about CHIP wt loss program. Encouraged increasing water to 1 gallon/day. Substitutions: Recommend tracking everything you put in your mouth on an karmen like Meusonic or NephroGenex Aldi carries a zero net carb bread [...] in much longer they will become mushy [place] and/or coconut flour instead of regular flour [...] pork rinds For yogurt, try Two Good new zealander yogurt Use Pinterest for recipe ideas. Type in low carb... Assessment & Plan (06/29/2020 10:14 AM CDT): HPI: Condition is not at/near goal of BMI <30 A&P: Healthy, low carbohydrate lifestyle and exercise for 150min/week recommended Substitutions: Recommend tracking everything you put in your mouth on an karmen like Meusonic or NephroGenex Aldi carries a zero net carb bread [...] in much longer they will become mushy [place] and/or coconut flour instead of regular flour [...] pork rinds For yogurt, try Two Good new zealander yogurt Use Pinterest for recipe ideas. Type in low carb... Vitamin D deficiency 06/29/2020 Assessment & Plan (03/10/2024 7:57 AM ENROBER): -chronic, stable -Discussed/ordered labs -continue on vitamin D3 5000 units daily Assessment & Plan (06/06/2023 8:05 AM CDT): -chronic, stable -Discussed/ordered labs -continue on vitamin D3 5000 units daily Assessment & Plan (01/08/2023 3:30 PM ENROBER): -chronic, unknown, no data to review at [...] bone loss and vit B12 deficiency with prison use of PPI with pt, would like [...] of cdif and vit B12 deficiency with prison use of PPI with pt, would like to remain on medication at this time Assessment & Plan (12/21/2019 10:21 AM ENROBER): Patient has features of GERD. Possibly associated gastritis. Start Pepcid 40 mg daily. Discussed diet modifications. If no benefit will schedule EGD. Obstructive sleep apnea 09/30/2019 Assessment & Plan (03/10/2024 2:58 PM ENROBER): -chronic, stable -Patient does not use a CPAP Assessment & Plan (06/06/2023 8:05 AM CDT): -chronic, stable Continue seeing Dr. Valenzuela sleep Medicine. Patient does not use a CPAP Assessment & Plan (01/08/2023 3:29 PM ENROBER): -chronic, stable Continue seeing Dr. Valenzuela sleep [...] too much moisture. She is going to [facility] and getting a face mask. She does not have a sleep med doctor. We will put in referral to Dr. Valenzuela Assessment & Plan (09/30/2019 4:27 PM CDT): Patient reports poor home compliance with CPAP, monitor respiratory function and start CPAP q.h.s. if necessary. Seasonal allergic rhinitis 06/21/2013 Overview (05/11/2016): Seasonal allergies Assessment & Plan (03/10/2024 7:56 AM ENROBER): -Chronic, stable Discussed environmental controls No smoking [...] winter Assessment & Plan (01/08/2023 3:29 PM ENROBER): HPI: Condition is stable A&P: Discussed environmental [...] 2020 Assessment & Plan (03/10/2024 7:56 AM ENROBER): -chronic, stable -Discussed/ordered labs -continue on Advair [...] knee pain 03/20/2022 05/29/2022 Daytime somnolence 11/09/2021 3 Assessment & Plan (11/09/2021 12:12 PM CDT): Recommend seeing Dr. Valenzuela sleep medicine for sleep study Patient is not using CPAP Screening for colon cancer 09/20/2021 0 05/29/2022 Overview (09/20/2021): Added automatically from request for surgery [id number] History of diverticulitis 06/29/2020 Assessment & Plan [...] (12/18/2019): Added automatically from request for surgery [id number] Rectal pain 12/18/2019 06/29/2020 Overview (12/18/2019): Added automatically from request for surgery [id number] Assessment & Plan (12/21/2019 10:14 AM ENROBER): Will schedule colonoscopy for evaluation. Discussed with patient diet with soluble fiber. Rectal pressure 12/18/2019 06/29/2020 Overview (12/24/2019): Added automatically from request for surgery [id number] Viral upper respiratory tract infection 10/02/2019 06/29/2020 [...] has never heard of 1 being ruptured. CARVER AND CHECKERER SPECIALS consulted. Got 1 L of NS in ED, will administer an additional 1 L and recheck lactate. Lactic acidosis 09/30/2019 06/29/2020 Fever 03/24/2014 06/29/2020 Overview (05/11/2016): Fever Family history of other condition 04/04/2012 06/29/2020 Overview (12/18/2019): Note: Unchanged Immunizations Immunization Administration Dates Next Due Influenza, Quadrivalent, Spl it, Preservative Free, Intramuscular 01/11/2021 Influenza, Unspecified 03/10/2024(Deferr ed: Patient Refused),03/20/2023(Deferred: Patient Refused),11/05/2020(Deferred: Patient Refused),02/06/2020(Deferred: Patient Refused),10/07/2019(Deferred: Patient Refused),02/05/2019(Deferred: Patient Refused),02/05/2019(Deferred: Patient Refused) Pfizer SARS-CoV-2 Monovalent Vaccination (12+ Yrs) PURPLE 05/11/2020,04/16/2020 Pneumococcal Conjugate Pcv20 09/19/2021 Td, adsorbed 09/14/2001 Tdap 09/19/2021,04/27/2011 Social History Tobacco Use Types Packs/Day Years [...] on file Legal Sex Female 10:46 AM ENROBER Gender Identity Not on file Sexual Orientation Not on file Last Filed Vital Signs Vital Sign Reading Time Taken Comments Blood Pressure 108/70 04/02/2024 1:18 PM ENROBER Pulse 99 04/02/2024 1:18 PM ENROBER Temperature 36.4 C (97.5 F) 03/10/2024 11:12 AM ENROBER Respiratory Rate 20 03/10/2024 11:12 AM ENROBER Oxygen Saturation 95% 04/02/2024 1:18 PM ENROBER Inhaled Oxygen Concentration - - Weight 93.4 kg (206 lb) 04/02/2024 1:18 PM ENROBER Height 157.5 cm (5' 2 ) 04/02/2024 1:18 PM ENROBER Body Mass Index 37.68 04/02/2024 1:18 PM ENROBER Plan of Treatment Not on file Procedures Procedure Name Priority Date/Time Associated Diagnosis Comments EMG/NCV Routine 05/21/2024 12:47 PM CDT Pain and numbness of right upper extremity THYROID FUNCTION CASCADE Routine 02/26/2024 8:57 AM ENROBER Family history of thyroid disease HEMOGLOBIN A1C Routine 02/26/2024 8:57 AM ENROBER Pre-diabetes SCREENING MAMMOGRAM BILATERAL W JUAN Schedule [...] ORDERABLES Fi nal Result * Thyroid Function Mcdonald (02/26/2024 8:57 AM ENROBER) TSH 1.37 0.30 - 4.20 mcIUnit/mL Blood 02/26/2024 8:57 AM ENROBER 02/26/2024 2:42 PM ENROBER us Sanjay Suarez DO LAB BLOOD ORDERABLES Final Result Performing Organization Address [facility] Co de Phone Number MARIANO BROWN [address] [employer] [address] * Hemoglobin A1c (02/26/2024 8:57 AM ENROBER) Hgb A1C 5.5 4.0 - 5.6 % Estimated Average Glucose 111 mg/dL MARIANO BROWN Comment: The ADA recommends reporting an estimated Average Glucose (eAG) with all Hemoglobin A1c results using the equation derived from a study of 507 normal and diabetic adults. Minority populations were underrepresented and children were not included. (Diabetes Care 31:9386-8672, 2008). The eAG is not equivalent to a fasting glucose. Blood 02/26/2024 8:57 AM ENROBER 02/26/2024 2:42 PM ENROBER [facility] Júnior Suarez DO LAB BLOOD ORDERABLES Final Result Performing Organization Address [facility] de Phone Number MARIANO BROWN [address] [place] [address] * Screening Mammogram Bilateral W Juan (08/08/2023 [...] Most Recently Relevant to Health Maintenance Insurance [facility] Advance Directives For more information, please contact: [phone] * Full Code (Latest Code Status on File) Date Activated Date Inactivated Comments 09/30/2019 1:03 PM 10/02/2019 4:35 PM Care Teams Seaport Planning Manager Relationship Specialty Start Date End Date Vanessa Robledo NP [address] [facility] [address] [place] [address] PCP - General Family Medicine 05/29/22 Isamar Flores MD [address] [place] [address] Referring Physician Dermatology 06/29/20 Jennifer Mandel MD [address] [place] [address] Consulting Physician Gastroenterology 06/29/20 Bradley Knutson DO [address] [facility] [address] [place] [address] Referring Physician Otolaryngology 06/29/20 Lakshmi Bai PA [address] [place] [address] [address] [place] [address] Orthopedic Surgery 10/02/22 Sofia Sol NP [address] [place] [address] Nurse Practitioner Obstetrics and Gynecology 06/06/23
--- OUTSIDE RECORDS SUMMARY | 2024-05-22 17:30 | XMS_ITS | Encounter Summary ---
Author Organization [facility] Healthcare Address [address] [place] [address] Care Team Providers Care Engineering Assistant Name Role Phone Isamar Flores MD Unavailable [phone] Jennifer Mandel MD Unavailable [phone] Bradley Knutson DO Unavailable [phone] Vanessa Robledo NP Primary Care Provider [phone] Lakshmi Bai Unavailable [phone] Sofia Sol NP Unavailable [phone] Encounter Details Date Type Department Care Team (Late st Contact Info) Description 05/22/2024 Documentation [facility] [address] [facility] [address] [place] [address] Torres Foster MD [address] [place] [address] [address] [place] [address] Social History Tobacco Use Types Packs/Day Years [...] on file 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 documented in this encounter Plan of Treatment Not on file documented as of this encounter Visit Diagnoses Not on filedocumented in this encounter Care Teams Engineering Assistant Relationship Specialty Start Date End Date Vanessa Robledo NP 2 [facility] [address] [place] [address] PCP - General Family Medicine 05/29/22 Isamar Flores MD [address] [place] [address] Referring Physician Dermatology 06/29/20 Jennifer Mandel MD [address] [place] [address] Consulting Physician Gastroenterology 06/29/20 Bradley Knutson DO 2 [facility] [address] [facility] [address] [place] [address] Referring Physician Otolaryngology 06/29/20 Lakshmi Bai PA [address] [place] [address] [address] Orthopedic Surgery 10/02/22 Sofia Sol NP [address] [place] [address] Nurse Practitioner Obstetrics and Gynecology 06/06/23 documented as of this encounter
--- OUTSIDE RECORDS SUMMARY | 2024-05-22 17:31 | XMS_ITS | Clinical Summary ---
Author Organization [facility] Address [address] [place] [address] Phone Care Team Providers Care Associate Professor Of Literacy Name Role Phone REN TURNER, CLEMENCIA Vaughan Unavailable [phone] DALTON ORDOÑEZ MD Unavailable [phone] Reason for Visit and Chief Complaint WELL WOMAN EXAM Problems Includes: Problems addressed during this encounter and other active Problems All Visits Onset Date Resolved Date Provider Condition S tatus Diverticulitis of Colon 06/12/2022 SB CHOWDHURY WHNP-BC Active Last Documented On 3 2:29PM ; [facility] Hypertension Systemic 06/12/2022 [place] CHOWDHURY WHNP-BC Active Last Documented On 3 2:10PM ; [facility] Asthma 09/15/2015 [place] CHOWDHURY WHNP-BC Act elvira Last Documented On 6 1:05PM ; [facility] Plan of Treatment Pending Tests Order Diagnosis Results Due Ordering P rovider Ultrasound (OB) - ULTRASOUND Pelvic w/TVT (TransVag) Abdominal distension (gaseous) 06/15/23 [place] Too LUCIANA WHNP-BC Last Documented On 4 2:38PM ; [facility] Radiology @ other - *MAMMOGRAPHY SCREENING MAMMOGRAM Encntr screen mammogram for malignant neoplasm of breast 06/29/23 [place] MCGRAWNP-BC Last Documented On 4 2:38PM ; [facility] In office procedures - *Clia Waived Labs *FOBT* Fecal Occult Blood Test Encounter for screening for malignant neoplasm of rectum 06/29/23 [place] CHOWDHURY WHNP-BC Last Documented On 4 2:01PM ; [facility] Assessments Includes: Assessments from this encounter No Assessments Recorded Medical Equipment - Implanted Devices Includes: Current Devices No Medical Equipment Recorded Medications Includes: Medications discussed during this encounter and other current Medications Current Medications (continue as prescribed) Ashwagandha 125 MG Oral Capsule 06/15/2023 Provider: Diagnosis: Last Documented On 06/15/2023 1:48PM By Shanti GARCIA ; [facility] Vitamin D3 25 MCG (1000 UT) Oral Tablet Chewable 0 06/15/2023 Provider: Diagnosis: Last Documented On 06/15/2023 1:48PM By Shanti GARCIA ; [facility] Losartan Potassium-HCTZ 50-1 2.5 MG Oral Tablet 05/28/2022 Provider: RODRIGUEZ SILVA NP Diagnosis: Last Documented On 06/12/2022 2:10PM By Mallory GARCIA ; [facility] Medications Administered [...] Active Last Documented On 4 1:49PM ; [facility] Insurance Includes: Active Insurance Policies Plan Name Member ID Group # Subscriber Relationship Effect elvira Dates 1 - [facility] [id number] MIHIR ASHTON Self Clinical Notes Includes: Clinical Notes from this encounter No Clinical Notes Recorded
--- OUTSIDE RECORDS SUMMARY | 2024-05-22 17:31 | XMS_ITS ---
Author Organization [facility] Address [address] [place] [address] Phone Care Team Providers Care Altitude Chamber Technician Name Role Phone REN TURNER, CLEMENCIA Vaughan Unavailable [phone] TIAGO TURNER, DALTON Gage Unavailable [phone] Problems Includes: Active, inactive, and resolved Problems All Visits Onset Date Resolved Date Provider Condition S tatus Diverticulitis of Colon 06/12/2022 SB Wilson Gage LUCIANA WHNP-BC Active Last Documented On 3 2:29PM ; [facility] Hypertension Systemic 06/12/2022 LOUIS CHOWDHURY WHNP-BC Active Last Documented On 3 2:10PM ; [facility] Asthma 09/15/2015 LOUIS CHOWDHURY WHNP-BC Act elvira Last Documented On 6 1:05PM ; [facility] Female Pelvic Pain 04/04/2012 Unknown LOUIS CHOWDHURY WHN P-BC Resolved Last Documented On 6 8:29AM ; [facility] Note: Unchanged Candidiasis Vaginal 04/04/2012 Unknown LOUIS CHOWDHURY WH COMPENSATION AND BENEFITS ADVISOR-BC Resolved Last Documented On 6 1:20PM ; [facility] Note: Unchanged Family Medical History of Anemia 04/04/2012 LOUIS CHOWDHURY WHNP-BC Inactive Last Documented On 3 2:10PM ; [facility] Note: Unchanged Plan of Treatment Findings Encounter Date Ordered Clinical summary pro vided to patient WELL WOMAN - ESTABLISHED PT with LOUIS CHOWDHURY WHNP-BC 06/15/2023 Last Documented On 4 2:03PM ; [facility] Ordered follow-up visit 1 ye ar or as needed WELL WOMAN - ESTABLISHED PT with LOUIS CHOWDHURY WHNP-BC 06/15/2023 Last Documented On 4 2:03PM ; [facility] Ordered Clinical summary pro vided to patient WELL WOMAN - NEW PATIENT with LOUIS CHOWDHURY WHNP-BC 06/12/2022 Last Documented On 3 2:31PM ; [facility] Ordered follow-up visit 1 ye ar or as needed WELL WOMAN - NEW PATIENT with LOUIS CHOWDHURY WHNP-BC 06/12/2022 Last Documented On 3 2:31PM ; [facility] Will rpt. u/s in 6-8 weeks t o f/u on left ovarian cyst. Pt. is to schedule wwe and mammogram robbie - both are overdue! She was advised to report any further episodes of menses! 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 CONCRETE PIPE PLANT EXAM with LOUIS CHOWDHURY WHNP-BC 12/22/2016 Last Documented On 7 2:20PM ; [facility] Ordered follow-up visit 1 ye ar or as needed ANNUAL SUPERVISOR CONCRETE P[employer] PLANT EXAM with LOUIS CHOWDHURY WHNP-BC 12/22/2016 Last Documented On 7 2:20PM ; [facility] Ordered Clinical summary pro vided to patient 1 MONTH CHECK with LOUIS CHOWDHURY WHNP-BC 11/15/2015 Last Documented On 6 8:47AM ; [facility] Ordered Clinical summary pro vided to patient NEW LEVELING MACHINE OPERATOR EXAM with LOUIS CHOWDHURY WHNP-BC 09/15/2015 Last Documented On 6 1:45PM ; [facility] Ordered follow-up visit 1 ye ar or as needed NEW LEVELING MACHINE OPERATOR EXAM with LOUIS CHOWDHURY WHNP-BC 09/15/2015 Last Documented On 6 1:45PM ; [facility] Ordered Clinical summary pro vided to patient LEVELING MACHINE OPERATOR EXAM with VIANCA JACOBO RN [facility] 04/04/2012 Last Documented On 3 4:58PM ; [facility] Pending Tests Order Diagnosis Results Due Ordering P rovider Ultrasound (OB) - ULTRASOUND Pelvic w/TVT (TransVag) Abdominal distension (gaseous) 06/15/[address] [facility]- Last Documented On 4 2:38PM ; [facility] Radiology @ other - *MAMMOGRAPHY SCREENING MAMMOGRAM Encntr screen mammogram for malignant neoplasm of breast 06/29/23 LOUIS Gage LUCIANA ULISES- Last Documented On 4 2:38PM ; [facility] In office procedures - *Clia Waived Labs *FOBT* Fecal Occult Blood Test Encounter for screening for malignant neoplasm of rectum 06/29/23 LOUIS Gage LUCIANA [facility] Last Documented On 4 2:01PM ; [facility] Instructions to patient Instructions for patient : B reast Self Exam discussed Last Documented On 4 1:41PM ; [facility] Lose weight Last Documented On 4 1:42PM ; [facility] Colonoscopy Handout given to patient Last Documented On 4 1:42PM ; [facility] Instructions for patient : B reast Self Exam discussed Last Documented On 3 1:46PM ; [facility] Lose weight Last Documented On 3 1:47PM ; [facility] Instructions for patient : p atient is to keep a menstrual diary to help with further evaluation and treatment Last Documented On 9 9:19AM ; [facility] Instructions for patient ER if dizzy, vomiting or light-headed due to heavy bleeding Last Documented On 9 9:26AM ; [facility] Instructions for patient ER if bleeding through reg. sized pad/tampon < 1 hour Last Documented On 9 9:26AM ; [facility] Instructions for patient : B reast Self Exam discussed Last Documented On 7 1:56PM ; [facility] Lose weight Last Documented On 7 1:56PM ; [facility] Safe sex counseling Last Documented On 7 2:10PM ; [facility] Instructions for patient : B reast Self Exam discussed Last Documented On 6 12:54PM ; [facility] Lose weight Last Documented On 6 12:55PM ; [facility] Instructions for patient : B reast Self Exam discussed and technique reviewed Last Documented On 3 3:52PM ; [facility] Instructions for patient : K eep the area around the vulva dry. Allow the area to have exposure to air. Avoid irritants such as fabric softeners and perfumed soaps.~ Last Documented On 3 4:55PM ; [facility] Use a condom during sexual i ntercourse Last Documented On 3 3:52PM ; [facility] Instructed to call if excess elvira bleeding or abdominal/pelvic pain Last Documented On 3 3:52PM ; [facility] Patient may take Motrin OTC PRN as directed Last Documented On 3 3:52PM ; [facility] Instructions For Patient: Mo nthly Self Breast Exam Last Documented On 3 3:52PM ; [facility] Recommend diet and exercise at least 30 min three times per week Last Documented On 3 3:52PM ; [facility] Recommend CBC, TSH, fasting glucose, fasting lipid panel if patient aged 25 or older Last Documented On 3 3:52PM ; [facility] Recommend preventative vacci nation including but not limited to influenza/flu vaccine, DTP, Rubella, Hepatitis B vaccination series Last Documented On 3 3:52PM ; [facility] Instructions for patient : B reast Self Exam discussed Last Documented On 2 10:37AM ; [facility] Instructions for patient : K eep the area around the vulva dry. Allow the area to have exposure to air. Avoid irritants such as fabric softeners and perfumed soaps.~ Last Documented On 2 10:56AM ; [facility] Lose weight Last Documented On 2 10:53AM ; [facility] Advised d/c scented bath pro ducts Last Documented On 2 10:56AM ; [facility] Instructions for patient : K eep the area around the vulva dry. Allow the area to have exposure to air. Avoid irritants such as fabric softeners and perfumed soaps.~ Last Documented On 1 3:07PM ; [facility] Advised d/c scented bath pro ducts Last Documented On 1 3:07PM ; [facility] Education and Decision Aids were provided during visit for: Patient Education: Daily funmi cium and vitamin D Last Documented On 4 1:41PM ; [facility] Patient Education: weight be aring exercise Last Documented On 4 1:41PM ; [facility] Patient Education: Daily funmi cium and vitamin D Last Documented On 3 1:46PM ; [facility] Patient Education: weight be aring exercise Last Documented On 3 1:46PM ; [facility] INFORMED CONSENT DISCUSSION: Endometrial biopsy was discussed in detail including discomfort, insufficient specimen with need to repeat test, and rare incidence of uterine perforation. Patient expressed understanding of the above and consented to the procedure Last Documented On 9 9:18AM ; [facility] Patient Education: Daily funmi cium and vitamin D Last Documented On 7 1:56PM ; [facility] Patient Education: weight be aring exercise Last Documented On 7 1:56PM ; [facility] Patient counseling : Use of oral contraceptives discussed in detail including rare occurrence of heart attack, stroke, and leg clots. Patient understands that smoking increases the risk of serious side effects with any steroid-based contraceptive method Last Documented On 6 8:29AM ; [facility] Patient Education: Daily funmi cium and vitamin D Last Documented On 6 12:54PM ; [facility] Patient Education: weight be aring exercise Last Documented On 6 12:54PM ; [facility] control consent review ed and signed Start ocp today and use BUM x 1 month. ER/pain/bleeding precautions reviewed. Pt. to call if sx persist or worsen Last Documented On 6 1:42PM ; [facility] Discussed use of seat belts Last Documented On 3 3:52PM ; [facility] Patient education RE: rodolfo salazar signals associated with hormonal contraceptive use including abdominal, chest, or leg pain, headaches or visual disturbances Last Documented On 3 3:52PM ; [facility] Patient Education: Daily funmi cium and vitamin D Last Documented On 3 3:52PM ; [facility] Patient Education: weight be aring exercise Last Documented On 3 3:52PM ; [facility] Patient will maintain adequa te intake of dietary Ca+ and Mg+ Last Documented On 3 3:52PM ; [facility] control consent review ed and signed BUM X 1 MONTH Last Documented On 3 4:56PM ; [facility] Patient Education: Daily funmi cium and vitamin D Last Documented On 2 10:37AM ; [facility] Patient Education: weight be aring exercise Last Documented On 2 10:37AM ; [facility] Bacterial Vaginosis Informat ion Sheet Given Last Documented On 2 10:56AM ; [facility] Bacterial Vaginosis Informat ion Sheet Given Last Documented On 1 3:20PM ; [facility] Assessments Includes: Assessments for all patient encounters Findings Encounter Date NORMAL FEMALE EXAM WELL WOMAN - ESTABLISHED PT w ith LOUIS CHOWDHURY [facility]- 06/15/2023 Last Documented On 4 2:03PM ; [facility] Screening Malig. Neoplasm Rectum WELL WO MAN - ESTABLISHED PT with LOUIS CHOWDHURY NP-BC 06/15/2023 Last Documented On 4 2:03PM ; [facility] NORMAL FEMALE EXAM WELL WOMAN - NEW PATIENT with LOUIS CHOWDHURY NP-BC 06/12/2022 Last Documented On 3 2:31PM ; [facility] Pneumonia WELL WOMAN - NEW PATIENT with [place] FATOU CHOWDHURY NP-BC 06/12/2022 Last Documented On 3 2:31PM ; [facility] Screening Malig. Neoplasm Rectum WELL WO MAN - NEW PATIENT with L[facility]IS [facility]- 06/12/2022 Last Documented On 3 2:31PM ; [facility] Systemic hypertension WELL WOMAN - NEW PATIENT w ith LOUIS [facility]- 06/12/2022 Last Documented On 3 2:31PM ; [facility] Postmenopausal bleeding ENDOMETRIAL BIOPSY with L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 Neoplasm Rectum ANNUAL SUPERVISOR CONCRETE PIPE PLANT EXAM with LOUIS CHOWDHURY [facility] 12/22/2016 Last Documented On 7 2:20PM ; [facility] NORMAL FEMALE EXAM NEW LEVELING MACHINE OPERATOR EXAM with LOUIS MODI ELIUD [facility] 09/15/2015 Last Documented On 6 1:45PM ; [facility] Screening Malig. Neoplasm Rectum NEW LEVELING MACHINE OPERATOR EXAM wi th LOUIS [facility]Y [facility]- 09/15/2015 Last Documented On 6 1:45PM ; [facility] Contraceptive surveillance LEVELING MACHINE OPERATOR EXAM with VIANCA JACOBO RN [facility] 04/04/2012 Last Documented On 3 4:58PM ; [facility] Female pelvic pain LEVELING MACHINE OPERATOR EXAM with VIANCA Rodrigues [facility] 04/04/2012 Last Documented On 3 4:58PM ; [facility] NORMAL FEMALE EXAM LEVELING MACHINE OPERATOR EXAM with VIANCA Rodrigues [facility] 04/04/2012 Last Documented On 3 4:58PM ; [facility] Routine gynecological exam LEVELING MACHINE OPERATOR EXAM with VIANCA JACOBO RN [facility] 04/04/2012 Last Documented On 3 4:58PM ; [facility] SCREENING FOR STD LEVELING MACHINE OPERATOR EXAM with VIANCA JACOBO RN [facility] 04/04/2012 Last Documented On 3 4:58PM ; [facility] Vaginal candidiasis LEVELING MACHINE OPERATOR EXAM with VIANCA JACOBO RN [facility] 04/04/2012 Last Documented On 3 4:58PM ; [facility] NORMAL FEMALE EXAM LEVELING MACHINE OPERATOR EXAM with LOUIS A LUCIANA Wolf [facility] 02/15/2011 Last Documented On 2 10:56AM ; [facility] Vulvovaginitis LEVELING MACHINE OPERATOR EXAM with LOUIS Gage LUCIANA ULISES [facility] 02/15/2011 Last Documented On 2 10:56AM ; [facility] Vulvovaginitis PROBLEM VISIT with LOUIS Gage LUCIANA [facility] 02/14/2010 Last Documented On 1 3:24PM ; [facility] Instructions Includes: Instructions for all patient encounters Instructions to patient Instructions for patient : B reast Self Exam discussed Last Documented On 4 1:41PM ; [facility] Lose weight Last Documented On 4 1:42PM ; [facility] Colonoscopy Handout given to patient Last Documented On 4 1:42PM ; [facility] Instructions for patient : B reast Self Exam discussed Last Documented On 3 1:46PM ; [facility] Lose weight Last Documented On 3 1:47PM ; [facility] Instructions for patient : p atient is to keep a menstrual diary to help with further evaluation and treatment Last Documented On 9 9:19AM ; [facility] Instructions for patient ER if dizzy, vomiting or light-headed due to heavy bleeding Last Documented On 9 9:26AM ; [facility] Instructions for patient ER if bleeding through reg. sized pad/tampon < 1 hour Last Documented On 9 9:26AM ; [facility] Instructions for patient : B reast Self Exam discussed Last Documented On 7 1:56PM ; [facility] Lose weight Last Documented On 7 1:56PM ; [facility] Safe sex counseling Last Documented On 7 2:10PM ; [facility] Instructions for patient : B reast Self Exam discussed Last Documented On 6 12:54PM ; [facility] Lose weight Last Documented On 6 12:55PM ; [facility] Instructions for patient : B reast Self Exam discussed and technique reviewed Last Documented On 3 3:52PM ; [facility] Instructions for patient : K eep the area around the vulva dry. Allow the area to have exposure to air. Avoid irritants such as fabric softeners and perfumed soaps.~ Last Documented On 3 4:55PM ; [facility] Use a condom during sexual i ntercourse Last Documented On 3 3:52PM ; [facility] Instructed to call if excess elvira bleeding or abdominal/pelvic pain Last Documented On 3 3:52PM ; [facility] Patient may take Motrin OTC PRN as directed Last Documented On 3 3:52PM ; [facility] Instructions For Patient: Mo nthly Self Breast Exam Last Documented On 3 3:52PM ; [facility] Recommend diet and exercise at least 30 min three times per week Last Documented On 3 3:52PM ; [facility] Recommend CBC, TSH, fasting glucose, fasting lipid panel if patient aged 25 or older Last Documented On 3 3:52PM ; [facility] Recommend preventative vacci nation including but not limited to influenza/flu vaccine, DTP, Rubella, Hepatitis B vaccination series Last Documented On 3 3:52PM ; [facility] Instructions for patient : B reast Self Exam discussed Last Documented On 2 10:37AM ; [facility] Instructions for patient : K eep the area around the vulva dry. Allow the area to have exposure to air. Avoid irritants such as fabric softeners and perfumed soaps.~ Last Documented On 2 10:56AM ; [facility] Lose weight Last Documented On 2 10:53AM ; [facility] Advised d/c scented bath pro ducts Last Documented On 2 10:56AM ; [facility] Instructions for patient : K eep the area around the vulva dry. Allow the area to have exposure to air. Avoid irritants such as fabric softeners and perfumed soaps.~ Last Documented On 1 3:07PM ; [facility] Advised d/c scented bath pro ducts Last Documented On 1 3:07PM ; [facility] Education and Decision Aids were provided during visit for: Patient Education: Daily funmi cium and vitamin D Last Documented On 4 1:41PM ; [facility] Patient Education: weight be aring exercise Last Documented On 4 1:41PM ; [facility] Patient Education: Daily funmi cium and vitamin D Last Documented On 3 1:46PM ; [facility] Patient Education: weight be aring exercise Last Documented On 3 1:46PM ; [facility] INFORMED CONSENT DISCUSSION: Endometrial biopsy was discussed in detail including discomfort, insufficient specimen with need to repeat test, and rare incidence of uterine perforation. Patient expressed understanding of the above and consented to the procedure Last Documented On 9 9:18AM ; [facility] Patient Education: Daily funmi cium and vitamin D Last Documented On 7 1:56PM ; [facility] Patient Education: weight be aring exercise Last Documented On 7 1:56PM ; [facility] Patient counseling : Use of oral contraceptives discussed in detail including rare occurrence of heart attack, stroke, and leg clots. Patient understands that smoking increases the risk of serious side effects with any steroid-based contraceptive method Last Documented On 6 8:29AM ; [facility] Patient Education: Daily funmi cium and vitamin D Last Documented On 6 12:54PM ; [facility] Patient Education: weight be aring exercise Last Documented On 6 12:54PM ; [facility] control consent review ed and signed Start ocp today and use BUM x 1 month. ER/pain/bleeding precautions reviewed. Pt. to call if sx persist or worsen Last Documented On 6 1:42PM ; [facility] Discussed use of seat belts Last Documented On 3 3:52PM ; [facility] Patient education RE: jesseshana salazar signals associated with hormonal contraceptive use including abdominal, chest, or leg pain, headaches or visual disturbances Last Documented On 3 3:52PM ; [facility] Patient Education: Daily funmi cium and vitamin D Last Documented On 3 3:52PM ; [facility] Patient Education: weight be aring exercise Last Documented On 3 3:52PM ; [facility] Patient will maintain adequa te intake of dietary Ca+ and Mg+ Last Documented On 3 3:52PM ; [facility] control consent review ed and signed BUM X 1 MONTH Last Documented On 3 4:56PM ; [facility] Patient Education: Daily funmi cium and vitamin D Last Documented On 2 10:37AM ; [facility] Patient Education: weight be aring exercise Last Documented On 2 10:37AM ; [facility] Bacterial Vaginosis Informat ion Sheet Given Last Documented On 2 10:56AM ; [facility] Bacterial Vaginosis Informat ion Sheet Given Last Documented On 1 3:20PM ; [facility] Medical Equipment - Implanted Devices Includes: Current and historical Devices No Medical Equipment Recorded Medications Includes: Current and historical Medications Current Medications (continue as prescribed) Ashwagandha 125 MG Oral Capsule 06/15/2023 Provider: Diagnosis: Last Documented On 06/15/2023 1:48PM By Shanti GARCIA ; [facility] Vitamin D3 25 MCG (1000 UT) Oral Tablet Chewable 0 06/15/2023 Provider: Diagnosis: Last Documented On 06/15/2023 1:48PM By Shanti GARCIA ; [facility] Losartan Potassium-HCTZ 50-1 2.5 MG Oral Tablet 05/28/2022 Provider: RODRIGUEZ SILVA NP Diagnosis: Last Documented On 06/12/2022 2:10PM By Mallory GARCIA ; [facility] Past Medications on file Acyclovir 800MG Oral Tablet 04/22/2018 - 06/12/2022 Pr ovider: LOUIS DOMINGUEZ-BC Diagnosis: One tablet twice a day Last Documented On 06/12/2022 2:09PM By Mallory GARCIA ; [facility] Mimvey 1-0.5MG Oral Tablet 03/28/2017 - 04/25/2017 Pro vider: LOUIS Too LUCIANA DOMINGUEZ-BC Diagnosis: One tablet daily Last Documented On 8 7:19AM By LOUIS REYEZ ; [facility] Mimvey 1-0.5MG Oral Tablet 01/03/2017 - 03/28/2017 Pro vider: LOUIS Too LUCIANA DOMINGUEZ-BC Diagnosis: One tablet daily Last Documented On 8 7:07AM By LOUIS REYEZ ; [facility] Lo Loestrin Fe 1 MG-10 MCG / 10 MCG Tablet 11/15/2015 - 11/09/2016 Provider: LOUIS REYEZ Diagnosis: Other specified irregular menstruation One tablet daily Last Documented On 6 8:53AM By LOUIS REYEZ ; [facility] Lo Loestrin Fe 1 MG-10 MCG / 10 MCG Tablet 11/09/2015 - 11/15/2015 Provider: LOUIS REYEZ Diagnosis: Other specified irregular menstruation One tablet daily Last Documented On 6 8:45AM By LOUIS REYEZ ; [facility] Lo Loestrin Fe 1 MG-10 MCG / 10 MCG Tablet 10/12/2015 - 11/09/2015 Provider: L[place]IS GLOVERBC Diagnosis: Other specified irregular menstruation One tablet daily Last Documented On 6 4:18PM By LOUIS REYEZ ; [facility] Lo Loestrin Fe 1 MG-10 MCG / 10 MCG Tablet 09/15/2015 - 10/12/2015 Provider: LOUIS REYEZ Diagnosis: Other specified irregular menstruation One tablet daily Last Documented On 6 12:03PM By LOUIS REYEZ ; [facility] Lo Loestrin Fe 1 MG-10 MCG / 10 MCG OR TABS 08/16/2012 - 09/14/2015 Provider: VIANCA JACOBO RN ULISES BC Diagnosis: PRESCRIP-ORAL CONTRACEPT TAKE DIRECTED Last Documented On 6 10:48AM By HUMBLE GARCIA ; [facility] Mirena (52 MG) 20 MCG/24HR Intrauterine device 0 04/16/2012 - 09/15/2015 Provider: Diagnosis: Last Documented On 6 1:42PM By LOUIS REYEZ ; [facility] Lo Loestrin Fe 1 MG-10 MCG / 10 MCG OR TABS 04/04/2012 - 06/27/2012 Provider: VIANCA DOMINGUEZ BC Diagnosis: CONTRACEPT SURVE ILL NOS Last Documented On 3 4:27PM By VIANCA REYEZ ; [facility] Fluconazole 150 MG OR TABS 04/04/2012 - 09/14/2015 Provider: VIANCA DOMINGUEZ BC Diagnosis: CANDIDAL VULVOVA GINITIS USE 1 TAB X 1 Last Documented On 6 10:48AM By HUMBLE GARCIA ; [facility] Phentermine HCl 30 MG OR CAPS 04/04/2012 - 09/15/2015 Provider: Diagnosis: Last Documented On 09/15/2015 1:06PM By HUMBLE GARCIA ; [facility] Levaquin 500 MG OR TABS 04/04/2012 - 08/16/2012 Provid er: Diagnosis: Last Documented On 3 2:42PM By VIANCA REYEZ ; [facility] Diflucan 150 MG OR TABS 02/20/2011 - 09/14/2015 Provid er: LOUIS REYEZ Diagnosis: Take one dose po x 1 and may repeat in 3 days if needed. Last Documented On 6 10:48AM By HUMBLE GARCIA ; [facility] Flagyl 500 MG OR TABS 02/15/2011 - 09/14/2015 Provider : LOUIS REYEZ Diagnosis: Last Documented On 6 10:48AM By HUMBLE GARCIA ; [facility] Diflucan 150 MG OR TABS 02/16/2010 - 02/15/2011 Provid er: LOUIS GLOVERBC Diagnosis: Take one dose po x 1 and may repeat in 3 days if needed. Last Documented On 2 2:55PM By LOUIS REYEZ ; [facility] Flagyl 500 MG OR TABS 02/14/2010 - 02/15/2011 Provider : LOUIS REYEZ Diagnosis: Last Documented On 2 10:54AM By LOUIS REYEZ ; [facility] Mirena (52 MG) 20 MCG/24HR IU IUD 04/10/2009 - 013 Provider: Diagnosis: Last Documented On 3 2:37PM By VIANCA JACOBO WILSON ; [facility] Medications Administered Includes: Administered Medications in patient's chart No Administered Medications Recorded Vital Signs Includes: Vital Signs from 05/23/2023 through 05/22/2024 Vital Name 06/15/2023 01:43P Blood Pressure Sitting (mmHg) 118/86 Temp-Temporal 98.5 Height (in) 63 Weight (lb) 203 Body Mass Index 36 Body Surface Area 1.9 Last Documented: On 06/15/2023 1:44PM ; [facility] Results Includes: Results from 05/23/2023 through 05/22/2024 FOBT-FECAL OCCULT BLOOD TEST [facility] Ordered by LOUIS REYEZ on 06/05 Collected: Reported: 06/15/2023 14:01 Last Documented On 4 7:34AM ; [facility] Reviewed by OLUIS CHOWDHURY LON on 08/23/2023; All test results are final unless otherwise noted. OCCULT BLOOD: Negative (NEG.) N (Normal) Last Documented On 4 2:01PM ; [facility] INT. QC ACCEPTABLE? Yes N (Normal) Last Documented On 4 2:01PM ; [facility] LOT # & EXP. DATE [id number] 10/05/25 N (Normal) Last Documented On 4 2:01PM ; [facility] History of Present Illness History of Present Illness not supported for this document type No History of Present Illness Recorded Social History Description Last Updated Not using alcohol 06/15/2023 Last Documented On 4 2:03PM ; [facility] Not using drugs 06/15/2023 Last Documented On 4 2:03PM ; [facility] Sexually active with 1 partners in the l ast year 06/15/2023 Last Documented On 4 2:03PM ; [facility] Tobacco non-user 06/15/2023 Last Documented On 4 2:03PM ; [facility] Sexually active 06/12/2022 Last Documented On 3 2:31PM ; [facility] Has sex with males only 06/12/2022 Last Documented On 3 2:31PM ; [facility] Never a smoker 06/12/2022 Last Documented On 3 2:31PM ; [facility] Smoking Status Unknown Procedures and Surgical History Includes: Procedures from 05/23/2023 through 05/22/2024 Procedures Code Diagnosis Performing Provider Service Location Service Date FIT TEST-SCREENING FOR FECAL OCCULT BLOOD (CLIA WAIVED) 27[address] Encounter for screening for malignant neoplasm of

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
--- OUTSIDE RECORDS SUMMARY | 2024-05-22 17:31 | XMS_ITS | Clinical Summary ---
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 Problems Includes: Problems addressed during this encounter and other active Problems All Visits Onset Date Resolved Date Provider Condition S tatus Diverticulitis of Colon 06/12/2022 SB CHOWDHURY WHNP-BC Active Last Documented On 3 2:29PM ; [facility] Hypertension Systemic 06/12/2022 [place] CHOWDHURY WHNP-BC Active Last Documented On 3 2:10PM ; [facility] Asthma 09/15/2015 [place] CHOWDHURY WHNP-BC Act elvira Last Documented On 6 1:05PM ; [facility] Plan of Treatment Pending Tests Order Diagnosis Results Due Ordering P rovider Ultrasound (OB) - ULTRASOUND Pelvic w/TVT (TransVag) Abdominal distension (gaseous) 06/15/23 [place] Too LUCIANA WHNP-BC Last Documented On 4 2:38PM ; [facility] Radiology @ other - *MAMMOGRAPHY SCREENING MAMMOGRAM Encntr screen mammogram for malignant neoplasm of breast 06/29/23 [place] MCGRAWNP-BC Last Documented On 4 2:38PM ; [facility] In office procedures - *Clia Waived Labs *FOBT* Fecal Occult Blood Test Encounter for screening for malignant neoplasm of rectum 06/29/23 [place] CHOWDHURY WHNP-BC Last Documented On 4 2:01PM ; [facility] Assessments Includes: Assessments from this encounter No Assessments Recorded Medical Equipment - Implanted Devices Includes: Current Devices No Medical Equipment Recorded Medications Includes: Medications discussed during this encounter and other current Medications Current Medications (continue as prescribed) Ashwagandha 125 MG Oral Capsule 06/15/2023 Provider: Diagnosis: Last Documented On 06/15/2023 1:48PM By Shanti GARCIA ; [facility] Vitamin D3 25 MCG (1000 UT) Oral Tablet Chewable 0 06/15/2023 Provider: Diagnosis: Last Documented On 06/15/2023 1:48PM By Shanti GARCIA ; [facility] Losartan Potassium-HCTZ 50-1 2.5 MG Oral Tablet 05/28/2022 Provider: RODRIGUEZ SILVA NP Diagnosis: Last Documented On 06/12/2022 2:10PM By Mallory GARCIA ; [facility] Medications Administered Includes: Administered Medications from [...] Active Last Documented On 4 1:49PM ; [facility] Insurance Includes: Active Insurance Policies Plan Name Member ID Group # Subscriber Relationship Effect elvira Dates 1 - [employer] [id number] MIHIR ASHTON Self Clinical Notes Includes: Clinical Notes from this encounter No Clinical Notes Recorded
[2024-05-22 17:38] VITALS: BP 116/69; PULSE 96; RESP 20; TEMP 36.6; O2SAT 99
--- NOTE | 2024-05-22 17:45 | ECG_ITS ---
Test Date: 2024-05-22 17:48:29 Measurements Intervals [place] Rate: 84 P: 1 KS: 154 QRS: 30 QRSD: 85 T: 10 QT: 381 QTc: 453 Interpretive Statements SINUS RHYTHM CONSIDER INFERIOR INFARCT, AGE INDETERMINATE BASELINE ARTIFACT- I, III, AVR, AVL, AVF ABNORMAL ECG No previous ECG available for comparison Electronically Signed On 05-23-2024 09:08:43 CDT by Titi Lanier D.O.
--- NOTE | 2024-05-22 18:01 | ED_ITS ---
HPI - Chest Pain General Chief Complaint: Chest Pain Stated Complaint: SOB / Chest Pain Source: patient Mode of arrival: ambulatory Limitations: no limitations History of Present Illness HPI narrative: 48 y/o female with hx HTN presented for c/o right chest tightness, palpitations, indigestion, and back spasms. Onset yesterday following an EMG. Says the right chest tightness is in the location of the shocks from the procedure. Pt endorses fatigue and feeling cloudy while driving today. Denies nausea, vomiting, fever, diaphoresis, radiating pain to neck or jaw. Took several Tums last night, and was awake most of the night with indigestion. Says she has right sided numbness and tingling for 6 months, for which she follows with neuro and is the reason for EMG. Related Data Home Medications ?Medication ?Instructions ?Recorded ?Confirmed ?Last Taken ?Type cholecalciferol (vitamin D3) 25 25 mcg PO DAILY 08/10/20 04/26/21 Unknown History mcg (1,000 unit) capsule lisinopril 10 1 tablet PO DAILY 08/10/20 05/22/24 Unknown History mg-hydrochlorothiazide 12.5 mg tablet Allergies Allergy/AdvReac Type Severity Reaction Status Date / Time codeine AdvReac Unknown Nausea and Verified 05/22/24 17:49 Vomiting Review of Systems Review of Systems: per HPI All systems reviewed & are unremarkable except as noted in HPI and below PMFSH Past Medical History Medical History Acid reflux Anemia Asthma Hypertension Irritable bowel syndrome Surgical History Surgical History Previous section x1 [place] teeth removed Family History Family History Grandparent Cerebrovascular accident Hypertension Hyperlipidemia Mother Hypertension Hyperlipidemia Social History Social History Smoking status: Never smoker Alcohol intake: current Alcohol use details: 2 drinks a month Substance use: never Comments At time of signature, I have reviewed and agree with nursing past medical, surgical, social and family history unless otherwise noted. Please see nursing chart for further information. There is no relevant family history pertinent to the presenting complaint Exam Narrative: GENERAL: Well-appearing, and in no acute distress. ENT: Mucous membranes pink and moist. CHEST: No respiratory distress. Clear to auscultation. Nontender chest HEART: Regular rate and rhythm. No murmur appreciated. Normal peripheral pulses. ABDOMEN: Soft, nontender, nondistended, normal active bowel sounds. SKIN: Warm, dry, no rash. Capillary refill normal. Normal skin turgor. NEURO: No focal deficits. Alert and oriented x3. Gait steady. PSYCH: Appears anxious, talkative. Course Course Emergency Course: Patient is aware of diagnosis, understands and agrees to treatment plan. Anticipatory guidance given. Patient agrees to follow-up as directed and is aware of reasons to seek care at the emergency department. Portions of this record may have been created with voice recognition software Level of Care: Express Care Visit Vital Signs Vital signs: Vital Signs Temperature 97.9 F 05/22/24 17:38 Pulse Rate 96 05/22/24 17:38 Respiratory Rate 20 05/22/24 17:38 Blood Pressure 116/69 05/22/24 17:38 Pulse Oximetry 99 05/22/24 17:38 Oxygen Delivery Room Air 05/22/24 17:38 Temperature 97.9 F 05/22/24 17:38 Pulse Rate 96 05/22/24 17:38 Respiratory Rate 20 05/22/24 17:38 Blood Pressure 116/69 05/22/24 17:38 Pulse Oximetry 99 05/22/24 17:38 Oxygen Delivery Room Air 05/22/24 17:38 Transfer Transfered to: [facility] Transportation: Other ( Private vehicle) Transfer rationale: Pt is agreeable to transfer. Requests transfer to [facility] via private vehicle; declines ambulance. Risks of transportation reviewed with pt including injury, worsening of condition and . v/u. Aunt will be driving pt; Report called to hospital, spoke with Marylou MOREIRA; Dr Latif, accepting physician. Pt is in stable condition at time of transfer. Advised to remain NPO and go directly to the hospital. MDM - Chest Pain MDM Narrative Medical decision making narrative: patient presenting with complaint of palpitations, indigestion right-sided chest tightness. Onset yesterday following an EMG. Advised ER transfer. Differential Diagnosis Differential diagnosis: Likely pneumothorax, stable angina, unstable angina pectoris, atypical chest pain, st elevation myocardial infarction, costochondritis, chest pain, biliary colic and other (PE, cardiac tamponade, esophageal rupture, pneumonia, GERD, musculoskeletal pain, endocarditis, pericarditis, URI, bronchitis, anxiety,) Discharge Plan Discharge Clinical Impression: Chest pain Qualifiers: Chest pain type: unspecified Qualified Code(s): R07.9 - Chest pain, unspecified Patient Disposition: Home Condition: Stable Patient Language: Luxembourgish Prescriptions: No Action lisinopril-hydrochlorothiazide 10-12.5 mg tablet 1 tablet PO DAILY cholecalciferol (vitamin D3) 25 mcg (1,000 unit) capsule 25 mcg PO DAILY metronidazole 500 mg tablet 500 mg PO Q12H Qty: 14 0RF Lo Loestrin Fe 1 mg-10 mcg (24)/10 mcg (2) tablet 1 tablet PO DAILY Qty: 84 0RF norethindrone-e.estradiol-iron [Junel Fe 24] 1 mg-20 mcg (24)/75 mg (4) tablet 1 tablet PO DAILY Qty: 84 0RF Follow-up/Referrals: Venkat,Vanessa [Other] Time of Disposition: 18:08
== END 2024-05-22 18:22 | disposition home or self-care (01) ==
PROVIDERS: Emergency Provider Nurse Practitioner Family
DX: R07.9 Chest pain, unspecified (principal); I10 Essential (primary) hypertension
CPT/HCPCS: 93005; 99213; G0463